=== PATIENT | female | born 1975 | race Caucasian/White ===

== ENCOUNTER 2016-08-29 22:39 | Emergency (ER) | payer OTHER ==
[2016-08-29 22:49] VITALS: BP 116/74; PULSE 81; TEMP 98.4; BMI 22.2
[2016-08-29] MEDS ORDERED: DEXAMETHASONE SOD PHOSPHATE 4 MG/1 ML VIAL IM ONE (23:04)
--- NOTE | 2016-08-29 23:04 | PDOC ---
History of Present Illness - General History Source: Patient Exam Limitations: No Limitations - History of Present Illness Initial Comments: 08/29/16 23:17 The patient is a 40-year-old female, with no significant past medical history, who presents to the ED with an allergic reaction that began a week ago. Pt believes the allergy is due to her eating a certain chocolate bar last week. She is experiencing a rash to both of her lower extremities, but predominantly in the lateral aspect of both legs. Pt denies taking any medications other than vitamins. Pt has been taking benadryl for the past week with minimal resolution of the rash. She reports to the ED today with acute onset of swelling to the left side of her face that she states feels numb. She denies any fever, chest pain, or shortness of breath. She denies any drooling. <Dixie Darling - Last Filed: 08/29/16 23:17> - General History Source: Patient <David Murphy - Last Filed: 08/30/16 00:41> - General Chief Complaint: Edema Stated Complaint: FACIAL DROOP Time Seen by Provider: 08/29/16 23:04 Past History <Dixie Darling - Last Filed: 08/29/16 23:17> - Surgical History Abdominal Surgery: Yes (umbilical hernia) - Psycho/Social/Smoking Cessation Hx Anxiety: No Suicidal Ideation: No Smoking History: Never smoked Have you smoked in the past 12 months: No Hx Alcohol Use: No Drug/Substance Use Hx: No Substance Use Type: None <David Murphy - Last Filed: 08/30/16 00:41> - Past Medical History Allergies/Adverse Reactions: Allergies Allergy/AdvReac Type Severity Reaction Status Date / Time No Known Allergies Allergy Verified 08/29/16 22:45 Home Medications: Ambulatory Orders Cholecalciferol (Vitamin D3) [Vitamin D3] 5,000 unit PO DAILY 08/29/16 Cyanocobalamin [Vitamin B12 -] 1,000 mcg PO DAILY 08/29/16 Diphenhydramine HCl [Benadryl -] 25 mg PO Q6H PRN 08/29/16 Folic Acid 1 mg PO DAILY 08/29/16 Magnesium 250 mg PO DAILY 08/29/16 Vitamin B Complex 1 each PO DAILY 08/29/16 Famotidine [Pepcid] 40 mg PO DAILY #20 tablet 08/30/16 Methylprednisolone [Medrol Dose Cem] 4 mg PO ASDIR #21 tablet 08/30/16 Review of Systems - Review of Systems Able to Perform ROS?: Yes Comments:: 08/29/16 23:19 CONSTITUTIONAL: Absent: fever, chills, diaphoresis, generalized weakness, malaise, loss of appetite HEENT: Absent: rhinorrhea, nasal congestion, throat pain, throat swelling, difficulty swallowing, mouth swelling, ear pain, eye pain, visual Changes CARDIOVASCULAR: Absent: chest pain, syncope, palpitations, irregular heart rate, lightheadedness , peripheral edema RESPIRATORY: Absent: cough, shortness of breath, dyspnea with exertion, orthopnea, wheezing, stridor, hemoptysis GASTROINTESTINAL: Present: nausea Absent: abdominal pain, abdominal distension, vomiting, diarrhea, constipation, melena, hematochezia GENITOURINARY: Absent: dysuria, frequency, urgency, hesitancy, hematuria, flank pain, genital pain MUSCULOSKELETAL: Absent: myalgia, arthralgia, joint swelling SKIN: Present: swelling to left side of face with urticaria, rash to lower extremities. Absent: pallor HEMATOLOGIC/IMMUNOLOGIC: Absent: easy bleeding, easy bruising, lymphadenopathy, frequent infections ENDOCRINE: Absent: unexplained weight gain, unexplained weight loss, heat intolerance, cold intolerance NEUROLOGIC: Present: numbness to left side of face Absent: headache, dizziness, unsteady gait, seizure, mental status changes, bladder or bowel incontinence PSYCHIATRIC: Absent: anxiety, depression, suicidal or homicidal ideation, hallucinations. <Dixie Darling - Last Filed: 08/29/16 23:17> *Physical Exam - Vital Signs Last Vital Signs Temp Pulse Resp BP Pulse Ox 98.4 F 81 18 116/74 100 08/29/16 22:45 08/29/16 22:45 08/29/16 22:45 08/29/16 22:45 08/29/16 22:45 - Physical Exam Comments: 08/29/16 23:21 General: Well developed, well nourished. Awake and alert. No acute distress. HEENT: Normocephalic, atraumatic. PERRLA, EOMI. No conjunctival pallor. Sclera are non- icteric. Moist mucous membranes. Oropharynx is clear. NECK: Supple. Full ROM. No JVD. Carotid pulses 2+ and symmetric, without bruits. No thyromegaly. No lymphadenopathy. CARDIOVASCULAR: Regular rate and rhythm. No murmurs, rubs, or gallops. Distal pulses are 2+ and symmetric. PULMONARY: No evidence of respiratory distress. Lungs clear to auscultation bilaterally. No wheezing, rales or rhonchi. ABDOMINAL: Soft. Non-tender. Non-distended. No rebound or guarding. No organomegaly. Normoactive bowel sounds. MUSCULOSKELETAL Normal range of motion at all joints. No bony deformities or tenderness. No CVA tenderness. EXTREMITIES: No cyanosis. No clubbing. No edema. No calf tenderness. SKIN: Warm and dry. Normal capillary refill. No jaundice. +Left side of face is slightly swollen, with a little bit of urticaria. Left-sided facial droop. NEUROLOGICAL: Alert, awake, appropriate. PSYCHIATRIC: Cooperative. Good eye contact. Appropriate mood and affect. <Dixie Darling - Last Filed: 08/29/16 23:17> - Vital Signs Last Vital Signs Temp Pulse Resp BP Pulse Ox 98.4 F 81 18 116/74 100 08/29/16 22:45 08/29/16 22:45 08/29/16 22:45 08/29/16 22:45 08/29/16 22:45 <David Murphy - Last Filed: 08/30/16 00:41> Medical Decision Making - Medical Decision Making 08/30/16 00:40 Dr. Murphy: The scribe's documentation has been prepared under my direction and personally reviewed by me in its entirery. I confirm that the note above accurately reflects all work, treatment, procedures, and medical decision making performed by me. swelling and tingling has improved. Pt feels better. Pt to be discharged. <David Murphy - Last Filed: 08/30/16 00:41> *DC/Admit/Observation/Transfer - Attestations Scribe Attestion: 08/29/16 23:22 Documentation prepared by Dixie Darling, acting as medical record librarian for David Murphy MD. <Dixie Darling - Last Filed: 08/29/16 23:17> - Discharge Dispostion Admit: No <David Murphy - Last Filed: 08/30/16 00:41> Diagnosis at time of Disposition: Allergic reaction Qualifiers: Encounter type: initial encounter Qualified Code(s): T78.40XA - Allergy, unspecified, initial encounter - Discharge Dispostion Disposition: HOME Condition at time of disposition: Improved - Prescriptions Prescriptions: Methylprednisolone [Medrol Dose Cem] 4 mg PO ASDIR #21 tablet Famotidine [Pepcid] 40 mg PO DAILY #20 tablet - Referrals Referrals: Ashley Patel MD [Primary Care Provider] - - Patient Instructions Printed Discharge Instructions: DI for General Allergic Reactions Additional Instructions: Take medication as directed. Follow up with your doctor by Friday for re- evaluation. Return if any problems. Print Language: [place]
[2016-08-29] MEDS ORDERED: FAMOTIDINE 20 MG/50 ML IVPB 20 MG in PREMIX 50 IVPB ONE (23:19)
[2016-08-29] MEDS ORDERED: methylPREDNISolone NA SUCC 125 MG/2 ML VIAL IVPB ONE (23:19)
[2016-08-29] MEDS ORDERED: methylPREDNISolone NA SUCC 125 MG/2 ML VIAL ONE (23:27)
[2016-08-29] MEDS ORDERED: FAMOTIDINE 20 MG/50 ML IVPB 50 ML IVPB ONE (23:27)
== END 2016-08-30 01:01 | disposition home or self-care (01) ==
LOC: JER 22:39
PROC: 3E033GC Introduction of Other Therapeutic Substance into Peripheral Vein, Percutaneous Approach (ICD-10-PCS; principal; 2016-08-29)
PROC: 3E0333Z Introduction of Anti-inflammatory into Peripheral Vein, Percutaneous Approach (ICD-10-PCS; 2016-08-29)
DX: T78.40XA Allergy, unspecified, initial encounter (principal)
CPT/HCPCS: 84703; 99283-25

== ENCOUNTER 2021-09-18 04:02 | Inpatient (IN) | payer OTHER ==
[2021-09-14 17:32] VITALS: BMI 24.4
[2021-09-18] MEDS ORDERED: VANCOMYCIN 1,000 MG VIAL (RESTRICTED TO ID ONLY) ONE ×2 (07:21→08:18)
[2021-09-18] MEDS ORDERED: GENTAMICIN SO4 80 MG/2 ML VIAL ONE (07:21)
[2021-09-18] MEDS ORDERED: BACITRACIN 15 GM TUBE TOPICAL OINTMENT ONE (07:21)
[2021-09-18] MEDS ORDERED: THROMBIN (BOVINE) 5,000 UNIT VIAL TP ONE ×4 (07:22→09:30)
[2021-09-18] MEDS ORDERED: BUPIVACAINE HCL/PF 0.5% (5MG/ML) 10 ML VIAL ONE (07:22)
[2021-09-18] MEDS ORDERED: ROCURONIUM BROMIDE 50 MG/5 ML SYRINGE ONE ×2 (07:23→10:03)
[2021-09-18] MEDS ORDERED: MIDAZOLAM HCL 2 MG/2 ML SINGLE DOSE VIAL ONE (07:23)
[2021-09-18] MEDS ORDERED: BUPIVACAINE LIPOSOME/PF (EXPAREL) 266 MG/20 ML VIAL ONE (07:23)
[2021-09-18] MEDS ORDERED: LIDOCAINE 1%/EPI 1:100000 (20 ML MULTI DOSE VIAL) ONE (07:23)
[2021-09-18] MEDS ORDERED: PROPOFOL 20 ML ONE ×2 (07:23)
[2021-09-18] MEDS ORDERED: LIDOCAINE HCL/PF 2% SDV 5ML VIAL ONE (07:26)
[2021-09-18] MEDS ORDERED: LIDOCAINE 1%/EPI 1:100000 (20 ML MULTI DOSE VIAL) IJ ONE ×2 (07:27→08:46)
[2021-09-18] MEDS ORDERED: ceFAZolin SODIUM 1 GM VIAL IVPB ONE ×2 (07:28→08:30)
[2021-09-18] MEDS ORDERED: VANCOMYCIN 1 GM in D5W (PRE-DOCKED) 1,000 MG/250 ML IVPB ONE ×4 (07:29→10:35)
[2021-09-18] MEDS ORDERED: GENTAMICIN SO4 80 MG/2 ML VIAL IVPB ONE ×2 (07:29→09:38)
[2021-09-18] MEDS ORDERED: HYDROGEN PEROXIDE 473 ML PO ONE ×2 (07:30→09:38)
[2021-09-18] MEDS ORDERED: SEVOFLURANE 250 ML BTL ONE (07:31)
[2021-09-18] MEDS ORDERED: TRANEXAMIC ACID 1000 MG/10 ML VIAL ONE (08:18)
[2021-09-18] MEDS ORDERED: morphine SULFATE/PF 1 MG/2 ML (2cc Syringe - QUVA) IT ONE (08:30)
[2021-09-18] MEDS ORDERED: ONDANSETRON 4 MG/2 ML VIAL ONE (08:39)
[2021-09-18] MEDS ORDERED: DEXAMETHASONE SOD PHOSPHATE 4 MG/1 ML VIAL ONE (08:39)
[2021-09-18] MEDS ORDERED: BUPIVACAINE HCL/PF 0.5% (5MG/ML) 10 ML VIAL IJ ONE (09:39)
[2021-09-18] MEDS ORDERED: BUPIVACAINE LIPOSOME/PF (EXPAREL) 266 MG/20 ML VIAL NR ONE (09:39)
[2021-09-18] MEDS ORDERED: oxyCODONE HCL 5 MG TABLET PO PRN ×2 (10:31)
[2021-09-18] MEDS ORDERED: NALOXONE HCL 0.4 MG/ML VIAL IVPUSH PRN (10:31)
[2021-09-18] MEDS ORDERED: ONDANSETRON 4 MG/2 ML VIAL IVPUSH PRN ×2 (10:31)
[2021-09-18] MEDS ORDERED: NEOSTIGMINE METHYLSULFATE 0.5 MG/1 ML - 10 ML MDV ONE (10:39)
[2021-09-18] MEDS ORDERED: GLYCOPYRROLATE 0.2 MG/1 ML VIAL ONE (10:39)
[2021-09-18] MEDS ORDERED: ACETAMINOPHEN 325 MG TABLET (FP) PO SCH (10:45)
[2021-09-18] MEDS ORDERED: diphenhydrAMINE HCL 25 MG CAPSULE (FP) PO PRN (11:13)
[2021-09-18] MEDS ORDERED: ACETAMINOPHEN INJECTION 100 ML IVPB ONE (11:37)
[2021-09-18] MEDS ORDERED: ACETAMINOPHEN 1000 MG/100 ML BAG IVPB ONE (12:04)
[2021-09-18] MEDS ORDERED: TIZANIDINE HCL 2 MG PO PRN (12:09)
[2021-09-18] MEDS ORDERED: [UNRECOGNIZED DRUG - OTHER] PO PRN (12:09)
[2021-09-18] MEDS ORDERED: PATIENT'S OWN MEDICATION (NON-FORMULARY) (Famotidine 40 MG Tablet) PO PRN (12:09)
[2021-09-18] MEDS ORDERED: metoPROLOL SUCCINATE 25 MG TAB.SR.24H (FP) PO SCH (12:15)
[2021-09-18] MEDS: ACETAMINOPHEN 500 MG TABLET (FP) PO SCH ×2 (18:59→19:00)
[2021-09-18] MEDS: LACTATED RINGERS SOLUTION 1,000 ML IV SCH (18:59)
[2021-09-18] MEDS: DOCUSATE SODIUM 100 MG CAPSULE (FP) PO SCH ×2 (19:00→21:39)
[2021-09-18] MEDS: CEFAZOLIN 1 GM in DEXTROSE 5%-WATER - 1 GM/50 ML IVPB IVPB SCH (21:40)
[2021-09-18] MEDS ORDERED: DOXYLAMINE SUCCINATE 25 MG PO SCH (22:00)
[2021-09-18] MEDS ORDERED: CYCLOBENZAPRINE HCL 10 MG TABLET (FP) PO SCH (22:00)
[2021-09-18] MEDS: NABUMETONE 750 MG TABLET PO SCH (22:29)
[2021-09-19] MEDS: ACETAMINOPHEN 500 MG TABLET (FP) PO SCH ×4 (00:54→17:14)
[2021-09-19] MEDS: CEFAZOLIN 1 GM in DEXTROSE 5%-WATER - 1 GM/50 ML IVPB IVPB SCH ×3 (02:29→17:15)
[2021-09-19] MEDS: LACTATED RINGERS SOLUTION 1,000 ML IV SCH ×3 (02:38→20:12)
[2021-09-19] MEDS: HEPARIN NA (PORCINE) 5,000 UNITS/ML 1ML VIAL SQ SCH ×3 (05:40→21:08)
[2021-09-19] MEDS: DOCUSATE SODIUM 100 MG CAPSULE (FP) PO SCH ×3 (05:41→21:07)
[2021-09-19 07:41] LABS: HEMATOCRIT 35.1 % (32.4-45.2); HEMOGLOBIN 12.4 GM/dL (10.7-15.3); MCH 29.6 pg (25.7-33.7); MCHC 35.4 g/dl (32.0-36.0); MEAN CELL VOLUME 83.7 fl (80-96); MEAN PLT VOLUME 8.4 fl (7.5-11.1); PLATELET COUNT 249 10^3/uL (134-434); RBC 4.19 M/mm3 (3.60-5.2); RDW 13.1 % (11.6-15.6); WHITE BLOOD COUNT 10.6 K/mm3 (4.0-10.0)
[2021-09-19 08:00] LABS: CALCIUM 8.8 mg/dL (8.5-10.1)
[2021-09-19 08:01] LABS: BLOOD UREA NITROGEN 11.1 mg/dL (7-18)
[2021-09-19 08:04] LABS: CREATININE 0.8 mg/dL (0.55-1.3)
[2021-09-19] MEDS: NABUMETONE 750 MG TABLET PO SCH ×2 (09:19→22:31)
[2021-09-19] MEDS ORDERED: FERROUS SO4 325 MG TABLET (FP) PO SCH (10:00)
[2021-09-19] MEDS ORDERED: PANTOPRAZOLE 40 MG TABLET PO SCH (10:00)
[2021-09-19] MEDS ORDERED: SODIUM BICARBONATE 650 MG TABLET PO SCH (10:00)
[2021-09-19] MEDS ORDERED: FOLIC ACID 1 MG TABLET (FP) PO SCH (10:00)
[2021-09-19] MEDS ORDERED: oxyCODONE HCL 5 MG TABLET PO PRN ×2 (10:31)
[2021-09-19] MEDS ORDERED: PATIENT'S OWN MEDICATION (NON-FORMULARY) (Famotidine 40 MG) PO PRN (19:05)
[2021-09-19] MEDS ORDERED: PATIENT'S OWN MEDICATION (NON-FORMULARY) (Tizanidine Hcl [Tizanidine Hcl] 2 MG) PO PRN (19:05)
[2021-09-19] MEDS ORDERED: ONDANSETRON 4 MG/2 ML VIAL IVPUSH PRN (19:05)
[2021-09-19] MEDS ORDERED: NALOXONE HCL 0.4 MG/ML VIAL IVPUSH PRN (19:05)
[2021-09-19] MEDS ORDERED: diphenhydrAMINE HCL 25 MG CAPSULE (FP) PO PRN (19:05)
[2021-09-19] MEDS ORDERED: metoPROLOL SUCCINATE 25 MG TAB.SR.24H (FP) PO SCH (19:05)
[2021-09-19] MEDS: oxyCODONE HCL 5 MG TABLET PO PRN ×2 (20:12→23:56)
[2021-09-19] MEDS: CYCLOBENZAPRINE HCL 10 MG TABLET (FP) PO SCH (21:07)
[2021-09-20] MEDS: ACETAMINOPHEN 500 MG TABLET (FP) PO SCH ×5 (00:06→23:47)
[2021-09-20] MEDS: CEFAZOLIN 1 GM in DEXTROSE 5%-WATER - 1 GM/50 ML IVPB IVPB SCH ×2 (01:29→09:18)
[2021-09-20] MEDS: oxyCODONE HCL 5 MG TABLET PO PRN ×4 (04:15→20:46)
[2021-09-20] MEDS: DOCUSATE SODIUM 100 MG CAPSULE (FP) PO SCH ×3 (06:15→22:23)
[2021-09-20] MEDS: HEPARIN NA (PORCINE) 5,000 UNITS/ML 1ML VIAL SQ SCH ×3 (06:16→22:24)
[2021-09-20] MEDS: LACTATED RINGERS SOLUTION 1,000 ML IV SCH (06:23)
[2021-09-20] MEDS: FERROUS SO4 325 MG TABLET (FP) PO SCH (09:21)
[2021-09-20] MEDS: FOLIC ACID 1 MG TABLET (FP) PO SCH (09:21)
[2021-09-20] MEDS: PANTOPRAZOLE 40 MG TABLET PO SCH (09:21)
[2021-09-20] MEDS: NABUMETONE 750 MG TABLET PO SCH ×2 (09:22→22:33)
[2021-09-20] MEDS ORDERED: SODIUM BICARBONATE 650 MG TABLET PO SCH (10:00)
[2021-09-20 10:20] LABS: BASO % 0.5 % (0-2.0); EOS % 0.4 % (0-4.5); HEMATOCRIT 35.5 % (32.4-45.2); HEMOGLOBIN 12.3 GM/dL (10.7-15.3); LYMPH % 14.5 % (8-40); MCH 29.1 pg (25.7-33.7); MCHC 34.7 g/dl (32.0-36.0); MEAN CELL VOLUME 83.8 fl (80-96); MEAN PLT VOLUME 9.1 fl (7.5-11.1); MONO % 7.7 % (3.8-10.2); NEUT % 76.9 % (42.8-82.8); PLATELET COUNT 237 10^3/uL (134-434); RBC 4.24 M/mm3 (3.60-5.2); RDW 13.4 % (11.6-15.6); WHITE BLOOD COUNT 9.4 K/mm3 (4.0-10.0)
[2021-09-20 10:42] LABS: CALCIUM 8.9 mg/dL (8.5-10.1)
[2021-09-20 10:43] LABS: BLOOD UREA NITROGEN 12.5 mg/dL (7-18)
[2021-09-20 10:46] LABS: CREATININE 0.9 mg/dL (0.55-1.3)
[2021-09-20] MEDS: FAMOTIDINE 20 MG TABLET PO SCH (22:24)
[2021-09-20] MEDS: CYCLOBENZAPRINE HCL 10 MG TABLET (FP) PO SCH (22:24)
[2021-09-21] MEDS: oxyCODONE HCL 5 MG TABLET PO PRN ×4 (05:50→20:54)
[2021-09-21] MEDS: HEPARIN NA (PORCINE) 5,000 UNITS/ML 1ML VIAL SQ SCH ×3 (05:52→21:03)
[2021-09-21] MEDS: DOCUSATE SODIUM 100 MG CAPSULE (FP) PO SCH ×3 (05:52→21:03)
[2021-09-21] MEDS: ACETAMINOPHEN 500 MG TABLET (FP) PO SCH ×3 (05:52→20:53)
[2021-09-21] MEDS: FERROUS SO4 325 MG TABLET (FP) PO SCH (10:31)
[2021-09-21] MEDS: PANTOPRAZOLE 40 MG TABLET PO SCH (10:31)
[2021-09-21] MEDS: metoPROLOL SUCCINATE 25 MG TAB.SR.24H (FP) PO SCH (10:31)
[2021-09-21] MEDS: NABUMETONE 750 MG TABLET PO SCH ×2 (10:32→21:02)
[2021-09-21] MEDS: FOLIC ACID 1 MG TABLET (FP) PO SCH (10:33)
[2021-09-21] MEDS ORDERED: POLYETHYLENE GLYCOL (HEALTHYLAX) 3350 17 GM PACKET PO ONE (20:30)
[2021-09-21] MEDS: CYCLOBENZAPRINE HCL 10 MG TABLET (FP) PO SCH (21:03)
[2021-09-21] MEDS: FAMOTIDINE 20 MG TABLET PO SCH (21:03)
[2021-09-22] MEDS: ACETAMINOPHEN 500 MG TABLET (FP) PO SCH ×3 (00:12→21:15)
[2021-09-22] MEDS: oxyCODONE HCL 5 MG TABLET PO PRN ×2 (00:15→06:09)
[2021-09-22] MEDS: DOCUSATE SODIUM 100 MG CAPSULE (FP) PO SCH ×3 (06:13→21:16)
[2021-09-22] MEDS: HEPARIN NA (PORCINE) 5,000 UNITS/ML 1ML VIAL SQ SCH ×2 (06:13→21:16)
[2021-09-22] MEDS ORDERED: PROPOFOL 40 ML ONE (06:52)
[2021-09-22] MEDS ORDERED: ROCURONIUM BROMIDE 50 MG/5 ML SYRINGE ONE (06:53)
[2021-09-22] MEDS ORDERED: SODIUM CHLORIDE 0.9% P/F 10 ML VIAL IJ ONE (06:53)
[2021-09-22] MEDS ORDERED: SUCCINYLCHOLINE CHLORIDE 200 MG/10 ML SYRINGE ONE (06:53)
[2021-09-22] MEDS ORDERED: SEVOFLURANE 250 ML BTL ONE (06:54)
[2021-09-22] MEDS ORDERED: DESFLURANE GAS 240 ML BOTTLE IH ONE (06:54)
[2021-09-22] MEDS ORDERED: GENTAMICIN SO4 80 MG/2 ML VIAL ONE (07:52)
[2021-09-22] MEDS ORDERED: VANCOMYCIN 1,000 MG VIAL (RESTRICTED TO ID ONLY) ONE (07:52)
[2021-09-22] MEDS ORDERED: THROMBIN (BOVINE) 5,000 UNIT VIAL TP ONE (07:53)
[2021-09-22] MEDS ORDERED: LIDOCAINE 1%/EPI 1:100000 (20 ML MULTI DOSE VIAL) ONE (07:53)
[2021-09-22] MEDS ORDERED: KETAMINE HCL 200 MG/20 ML VIAL ONE (08:54)
[2021-09-22] MEDS ORDERED: MIDAZOLAM HCL 2 MG/2 ML SINGLE DOSE VIAL ONE (08:54)
[2021-09-22] MEDS ORDERED: SUGAMMADEX SODIUM 200 MG/2 ML VIAL ONE (08:59)
[2021-09-22] MEDS ORDERED: VANCOMYCIN 1,000 MG VIAL (RESTRICTED TO ID ONLY) IVPB ONE (09:38)
[2021-09-22] MEDS ORDERED: LIDOCAINE 1%/EPI 1:100000 (20 ML MULTI DOSE VIAL) IJ ONE (09:43)
[2021-09-22] MEDS ORDERED: BUPIVACAINE LIPOSOME/PF (EXPAREL) 266 MG/20 ML VIAL ONE (09:44)
[2021-09-22] MEDS ORDERED: BUPIVACAINE HCL/PF 0.5% (5MG/ML) 10 ML VIAL ONE (09:44)
[2021-09-22] MEDS ORDERED: ceFAZolin SODIUM 1 GM VIAL IVPB ONE (09:45)
[2021-09-22] MEDS ORDERED: BUPIVACAINE LIPOSOME/PF (EXPAREL) 266 MG/20 ML VIAL NR ONE (10:03)
[2021-09-22] MEDS ORDERED: BUPIVACAINE HCL/PF 0.5% (5MG/ML) 10 ML VIAL IJ ONE (10:03)
[2021-09-22] MEDS ORDERED: morphine SULFATE 4 MG/ML VIAL IV PRN (11:21)
[2021-09-22] MEDS ORDERED: oxyCODONE HCL 5 MG TABLET PO PRN (11:27)
[2021-09-22] MEDS ORDERED: ACETAMINOPHEN 1000 MG/100 ML BAG IVPB ONE ×2 (12:00→13:00)
[2021-09-22] MEDS: LACTATED RINGERS SOLUTION 1,000 ML/1,000 ML INFUS.BAG IV SCH (12:25)
[2021-09-22] MEDS: FOLIC ACID 1 MG TABLET (FP) PO SCH (13:00)
[2021-09-22] MEDS: FERROUS SO4 325 MG TABLET (FP) PO SCH (13:00)
[2021-09-22] MEDS: metoPROLOL SUCCINATE 25 MG TAB.SR.24H (FP) PO SCH (13:01)
[2021-09-22] MEDS: PANTOPRAZOLE 40 MG TABLET PO SCH (13:01)
[2021-09-22] MEDS: NABUMETONE 750 MG TABLET PO SCH ×2 (13:01→21:16)
[2021-09-22] MEDS: CEFAZOLIN 1 GM in DEXTROSE 5%-WATER - 1 GM/50 ML IVPB IVPB SCH (17:16)
[2021-09-22 17:18] LABS: BASO % 0.2 % (0-2.0); EOS % 0.1 % (0-4.5); HEMATOCRIT 35.1 % (32.4-45.2); HEMOGLOBIN 12.3 GM/dL (10.7-15.3); LYMPH % 5.4 % (8-40); MCH 29.4 pg (25.7-33.7); MEAN PLT VOLUME 8.2 fl (7.5-11.1); MONO % 2.6 % (3.8-10.2); NEUT % 91.7 % (42.8-82.8); PLATELET COUNT 277 10^3/uL (134-434); RBC 4.19 M/mm3 (3.60-5.2); RDW 13.4 % (11.6-15.6); WHITE BLOOD COUNT 10.1 K/mm3 (4.0-10.0)
[2021-09-22 17:32] LABS: BLOOD UREA NITROGEN 10.6 mg/dL (7-18)
[2021-09-22 17:35] LABS: CREATININE 0.8 mg/dL (0.55-1.3)
[2021-09-22 18:23] LABS: ANISOCYTOSIS 1+; MACROCYTOSIS 0
[2021-09-22] MEDS: FAMOTIDINE 20 MG TABLET PO SCH (21:15)
[2021-09-22] MEDS: CYCLOBENZAPRINE HCL 10 MG TABLET (FP) PO SCH (21:16)
[2021-09-23] MEDS: ACETAMINOPHEN 500 MG TABLET (FP) PO SCH ×4 (01:57→21:29)
[2021-09-23] MEDS: CEFAZOLIN 1 GM in DEXTROSE 5%-WATER - 1 GM/50 ML IVPB IVPB SCH (01:57)
[2021-09-23] MEDS: oxyCODONE HCL 5 MG TABLET PO PRN ×2 (05:12→12:10)
[2021-09-23] MEDS: HEPARIN NA (PORCINE) 5,000 UNITS/ML 1ML VIAL SQ SCH ×3 (06:41→21:27)
[2021-09-23] MEDS: DOCUSATE SODIUM 100 MG CAPSULE (FP) PO SCH ×3 (06:41→21:27)
[2021-09-23 09:12] LABS: HEMATOCRIT 32.3 % (32.4-45.2); HEMOGLOBIN 11.2 GM/dL (10.7-15.3); MCH 29.5 pg (25.7-33.7); MCHC 34.8 g/dl (32.0-36.0); MEAN CELL VOLUME 84.6 fl (80-96); MEAN PLT VOLUME 7.6 fl (7.5-11.1); PLATELET COUNT 269 10^3/uL (134-434); RBC 3.82 M/mm3 (3.60-5.2); RDW 13.4 % (11.6-15.6); WHITE BLOOD COUNT 8.2 K/mm3 (4.0-10.0)
[2021-09-23 09:26] LABS: CALCIUM 8.8 mg/dL (8.5-10.1)
[2021-09-23 09:27] LABS: BLOOD UREA NITROGEN 10.2 mg/dL (7-18)
[2021-09-23 09:30] LABS: CREATININE 0.8 mg/dL (0.55-1.3)
[2021-09-23] MEDS: FOLIC ACID 1 MG TABLET (FP) PO SCH (09:34)
[2021-09-23] MEDS: FERROUS SO4 325 MG TABLET (FP) PO SCH (09:34)
[2021-09-23] MEDS: PANTOPRAZOLE 40 MG TABLET PO SCH (09:34)
[2021-09-23] MEDS: metoPROLOL SUCCINATE 25 MG TAB.SR.24H (FP) PO SCH (09:34)
[2021-09-23] MEDS: NABUMETONE 750 MG TABLET PO SCH ×2 (09:35→21:28)
[2021-09-23] MEDS: LACTATED RINGERS SOLUTION 1,000 ML/1,000 ML INFUS.BAG IV SCH (13:46)
[2021-09-23] MEDS: CYCLOBENZAPRINE HCL 10 MG TABLET (FP) PO SCH (21:27)
[2021-09-23] MEDS: FAMOTIDINE 20 MG TABLET PO SCH (21:27)
[2021-09-24] MEDS: oxyCODONE HCL 5 MG TABLET PO PRN ×3 (00:28→22:18)
[2021-09-24] MEDS: ACETAMINOPHEN 500 MG TABLET (FP) PO SCH (02:00)
[2021-09-24] MEDS: HEPARIN NA (PORCINE) 5,000 UNITS/ML 1ML VIAL SQ SCH ×3 (06:47→22:21)
[2021-09-24] MEDS: DOCUSATE SODIUM 100 MG CAPSULE (FP) PO SCH ×3 (06:48→22:18)
[2021-09-24 09:42] LABS: BASO % 0.7 % (0-2.0); EOS % 1.4 % (0-4.5); HEMATOCRIT 33.9 % (32.4-45.2); HEMOGLOBIN 11.7 GM/dL (10.7-15.3); LYMPH % 14.4 % (8-40); MCH 29.2 pg (25.7-33.7); MCHC 34.3 g/dl (32.0-36.0); MEAN PLT VOLUME 7.4 fl (7.5-11.1); MONO % 7.1 % (3.8-10.2); NEUT % 76.4 % (42.8-82.8); PLATELET COUNT 304 10^3/uL (134-434); RDW 13.7 % (11.6-15.6); WHITE BLOOD COUNT 9.3 K/mm3 (4.0-10.0)
[2021-09-24 10:06] LABS: BLOOD UREA NITROGEN 11.9 mg/dL (7-18); CALCIUM 8.9 mg/dL (8.5-10.1)
[2021-09-24 10:09] LABS: CREATININE 0.8 mg/dL (0.55-1.3)
[2021-09-24 10:10] LABS: PHOSPHOROUS 3.3 mg/dL (2.5-4.9)
[2021-09-24 10:11] LABS: BILIRUBIN,TOTAL 0.4 mg/dL (0.2-1); TOT PROT 6.8 g/dl (6.4-8.2)
[2021-09-24] MEDS: FERROUS SO4 325 MG TABLET (FP) PO SCH (11:11)
[2021-09-24] MEDS: PANTOPRAZOLE 40 MG TABLET PO SCH (11:11)
[2021-09-24] MEDS: NABUMETONE 750 MG TABLET PO SCH ×2 (11:12→22:20)
[2021-09-24] MEDS: metoPROLOL SUCCINATE 25 MG TAB.SR.24H (FP) PO SCH (11:12)
[2021-09-24] MEDS: FOLIC ACID 1 MG TABLET (FP) PO SCH (11:12)
[2021-09-24] MEDS ORDERED: MAGNESIUM HYDROX 2400MG/30ML ORAL SUSPENSION 30 ML CUP PO PRN (18:32)
[2021-09-24] MEDS: FAMOTIDINE 20 MG TABLET PO SCH (22:18)
[2021-09-24] MEDS: CYCLOBENZAPRINE HCL 10 MG TABLET (FP) PO SCH (22:18)
[2021-09-25] MEDS: DOCUSATE SODIUM 100 MG CAPSULE (FP) PO SCH ×3 (07:08→22:16)
[2021-09-25] MEDS: HEPARIN NA (PORCINE) 5,000 UNITS/ML 1ML VIAL SQ SCH ×3 (07:08→22:16)
[2021-09-25] MEDS ORDERED: Methylnaltrexone Bromide 12 MG/0.6 ML KIT SQ ONE (09:00)
[2021-09-25 11:33] LABS: BASO % 0.5 % (0-2.0); EOS % 1.3 % (0-4.5); HEMATOCRIT 36.1 % (32.4-45.2); HEMOGLOBIN 12.3 GM/dL (10.7-15.3); LYMPH % 17.7 % (8-40); MCH 29.3 pg (25.7-33.7); MCHC 34.2 g/dl (32.0-36.0); MEAN CELL VOLUME 85.6 fl (80-96); MEAN PLT VOLUME 7.5 fl (7.5-11.1); MONO % 7.8 % (3.8-10.2); NEUT % 72.7 % (42.8-82.8); PLATELET COUNT 357 10^3/uL (134-434); RBC 4.21 M/mm3 (3.60-5.2); RDW 13.6 % (11.6-15.6)
[2021-09-25 11:52] LABS: ALBUMIN 3.2 g/dl (3.4-5.0); BLOOD UREA NITROGEN 14.4 mg/dL (7-18); CALCIUM 9.4 mg/dL (8.5-10.1); MAGNESIUM 2.5 mg/dL (1.8-2.4)
[2021-09-25 11:55] LABS: CREATININE 0.8 mg/dL (0.55-1.3); PHOSPHOROUS 3.9 mg/dL (2.5-4.9)
[2021-09-25] MEDS: PANTOPRAZOLE 40 MG TABLET PO SCH (11:56)
[2021-09-25] MEDS: metoPROLOL SUCCINATE 25 MG TAB.SR.24H (FP) PO SCH (11:56)
[2021-09-25] MEDS: FERROUS SO4 325 MG TABLET (FP) PO SCH (11:56)
[2021-09-25 11:57] LABS: BILIRUBIN,TOTAL 0.8 mg/dL (0.2-1); TOT PROT 7.2 g/dl (6.4-8.2)
[2021-09-25] MEDS: NABUMETONE 750 MG TABLET PO SCH ×2 (11:57→22:16)
[2021-09-25] MEDS: FOLIC ACID 1 MG TABLET (FP) PO SCH (12:04)
[2021-09-25] MEDS: oxyCODONE HCL 5 MG TABLET PO PRN ×2 (17:13→23:29)
[2021-09-25] MEDS: FAMOTIDINE 20 MG TABLET PO SCH (22:16)
[2021-09-25] MEDS: CYCLOBENZAPRINE HCL 10 MG TABLET (FP) PO SCH (22:16)
[2021-09-26 02:49] VITALS: RESP 18
[2021-09-26] MEDS: HEPARIN NA (PORCINE) 5,000 UNITS/ML 1ML VIAL SQ SCH ×2 (06:07→13:37)
[2021-09-26] MEDS: DOCUSATE SODIUM 100 MG CAPSULE (FP) PO SCH ×2 (06:07→13:37)
[2021-09-26] MEDS: FERROUS SO4 325 MG TABLET (FP) PO SCH (09:30)
[2021-09-26] MEDS: FOLIC ACID 1 MG TABLET (FP) PO SCH (09:30)
[2021-09-26] MEDS: NABUMETONE 750 MG TABLET PO SCH ×2 (09:30→09:40)
[2021-09-26] MEDS: PANTOPRAZOLE 40 MG TABLET PO SCH (09:30)
[2021-09-26] MEDS: metoPROLOL SUCCINATE 25 MG TAB.SR.24H (FP) PO SCH (09:30)
[2021-09-26] MEDS: oxyCODONE HCL 5 MG TABLET PO PRN (09:37)
[2021-09-26 14:37] VITALS: BP 110/78; PULSE 110; TEMP 97.7
== END 2021-09-26 15:50 | disposition home or self-care (01) | DRG 304 ==
LOC: J2C 04:02 → J4W 18:29 → J6S 09-19 19:09
PROVIDERS: ADMIT Internal Medicine; ATTEND Internal Medicine
PROC: 0SG00AJ Fusion of Lumbar Vertebral Joint with Interbody Fusion Device, Posterior Approach, Anterior Column, Open Approach (ICD-10-PCS; 2021-09-18)
PROC: 01NB0ZZ Release Lumbar Nerve, Open Approach (ICD-10-PCS; 2021-09-18)
PROC: 0ST20ZZ Resection of Lumbar Vertebral Disc, Open Approach (ICD-10-PCS; 2021-09-18)
PROC: 4A11X4G Monitoring of Peripheral Nervous Electrical Activity, Intraoperative, External Approach (ICD-10-PCS; 2021-09-18)
PROC: 0SG0071 Fusion of Lumbar Vertebral Joint with Autologous Tissue Substitute, Posterior Approach, Posterior Column, Open Approach (ICD-10-PCS; principal; 2021-09-18 08:00)
PROC: 0SP004Z Removal of Internal Fixation Device from Lumbar Vertebral Joint, Open Approach (ICD-10-PCS; 2021-09-22)
PROC: 0SG0071 Fusion of Lumbar Vertebral Joint with Autologous Tissue Substitute, Posterior Approach, Posterior Column, Open Approach (ICD-10-PCS; 2021-09-22)
PROC: 4A11X4G Monitoring of Peripheral Nervous Electrical Activity, Intraoperative, External Approach (ICD-10-PCS; 2021-09-22)
PROC: 00UT0JZ Supplement Spinal Meninges with Synthetic Substitute, Open Approach (ICD-10-PCS; 2021-09-22)
DX: M51.16 Intervertebral disc disorders with radiculopathy, lumbar region (principal); G97.41 Accidental puncture or laceration of dura during a procedure; M51.26 Other intervertebral disc displacement, lumbar region; M47.896 Other spondylosis, lumbar region; I10 Essential (primary) hypertension; D50.9 Iron deficiency anemia, unspecified; K59.03 Drug induced constipation; T40.2X5A Adverse effect of other opioids, initial encounter
CPT/HCPCS: 36415; 72131-TC; 76000-TC-FY; 76705-TC; 80048; 80053; 83735; 84100; 85025; 85027; 85730; 86704; 86705; 86803; 86850; 86900; 86901; 87340; 87517; 94010; 94760; 97116-GP; 97162-GP; J1644